=== PATIENT | male | born 1995 | race Caucasian/White ===

== ENCOUNTER 2019-05-07 17:30 | Emergency (ER) | payer MEDICAID ==
[~2019-05-07] VITALS: Ht 172.7 cm; Wt 59.0 kg
[2019-05-07 17:32] VITALS: BP_SYST 130
[2019-05-07 19:30] LABS: BASOPHILS # (AUTO) 0.1 K/uL (0.0-0.2); BASOPHILS % (AUTO) 0.8 % (0.0-2.0); EOSINOPHILS # (AUTO) 0.1 K/uL (0.0-0.4); HEMATOCRIT 41.7 % (36-54); HEMOGLOBIN 14.2 g/dL (14.0-18.0); LYMPHOCYTES # (AUTO) 4.1 K/uL (1.0-5.5); LYMPHOCYTES % (AUTO) 46.8 % (20.5-51.5); MEAN CORPUSCULAR HEMOGLOBIN 31 pg (27-31); MEAN CORPUSCULAR HGB CONC 34 % (32-36); MEAN CORPUSCULAR VOLUME 91 fL (79.0-98.0); MONOCYTES # (AUTO) 0.5 K/uL (0.0-1.0); MONOCYTES % (AUTO) 6.2 % (1.7-9.3); NEUTROPHILS % (AUTO) 45.2 % (40.0-70.0); PLATELET COUNT (AUTO) 273 K/uL (130-430); RED CELL DISTRIBUTION WIDTH 13.1 % (9.0-15.0); WHITE BLOOD COUNT (AUTO) 8.8 K/uL (4.8-10.8)
[2019-05-07 20:09] LABS: CALCIUM 8.7 mg/dL (8.4-11.0); POTASSIUM 3.9 mmol/L (3.5-5.1)
[2019-05-07 20:10] LABS: CREATININE 0.97 mg/dL (0.55-1.30)
[2019-05-07 20:11] LABS: ALBUMIN 4.1 g/dL (3.4-4.8)
[2019-05-07 20:17] LABS: FREE T4 (FREE THYROXINE) 1.4 ng/dl (0.8-1.5); THYROID STIMULATING HORMONE 0.93 uIu/mL (0.36-3.74)
[2019-05-07 20:33] LABS: TOTAL BILIRUBIN 0.3 mg/dL (0.0-1.0)
[2019-05-07 22:38] VITALS: BP_SYST 130
[2019-05-07 22:41] LABS: BARBITURATE, URINE NEGATIVE (NEG <=200); BENZODIAZEPINE, URINE NEGATIVE (NEG <=150); CANNABINOID, URINE NEGATIVE (NEG <=50); COCAINE, URINE NEGATIVE (NEG <=150); METHAMPHETAMINES SCREEN,URINE NEGATIVE (NEG <=500); OPIATE, URINE NEGATIVE (NEG <=100); PHENCYCLIDINE SCREEN,URINE NEGATIVE (NEG <=25); UR TRICYCLIC ANTIDEPRESSANTS NEGATIVE (NEG <=300); URINE AMPHETAMINE NEGATIVE (NEG <=500); URINE METHADONE NEGATIVE (NEG <=200); URINE OXYCODONE SCREEN NEGATIVE (NEG <=100); URINE PROPOXYPHENE SCREEN NEGATIVE (NEG <=300)
== END 2019-05-07 22:53 | disposition home or self-care (01) ==
LOC: SED 17:30
DX: R42 Dizziness and giddiness (principal); R53.1 Weakness; R03.0 Elevated blood-pressure reading, without diagnosis of hypertension
CPT/HCPCS: 36415; 80053; 80307; 84439; 84443-TC; 85025; 93005; 99284

== ENCOUNTER 2019-09-01 21:33 | Emergency (ER) | payer MEDICAID ==
[~2019-09-01] VITALS: Ht 172.7 cm; Wt 59.0 kg
[2019-09-01 21:35] VITALS: BP_SYST 123
--- NOTE | 2019-09-01 21:35 | NUR ---
Patient triaged and placed in waiting room. VSS and patient appears in no acute distress at this time. Accompanied by FAM MEMBER, awaiting available bed, and MD notified of need for MSE.
[2019-09-01 23:07] LABS: BILIRUBIN,URINE NEGATIVE (NEGATIVE); BLOOD, URINE NEGATIVE (NEGATIVE); CLARITY/URINE CLEAR (CLEAR); COLOR,URINE YELLOW (YELLOW); GLUCOSE,URINE NEGATIVE (NEGATIVE); KETONES,URINE NEGATIVE (NEGATIVE); LEUKOCYTE ESTERASE ,URINE NEGATIVE (NEGATIVE); NITRITE, URINE NEGATIVE (NEGATIVE); PH,URINE 6.5 (5.0-8.0); PROTEIN URINE NEGATIVE (NEGATIVE); UROBILINOGEN,URINE 0.2 (0.2-1.0)
--- NOTE | 2019-09-02 00:15 | NUR ---
Patient to ER bed 6 to gown for evaluation. Side rails up. Report given to [place] RUELAS.
[2019-09-02] MEDS ORDERED: KETOROLAC TROMETHAMINE 30 MG VIAL IM ONE (00:30)
--- NOTE | 2019-09-02 00:30 | NUR ---
ER Dr. Bauer at bedside examining patient.
--- NOTE | 2019-09-02 00:30 | NUR ---
Pt presents to ER with c/o left flank pain. Pt A&Ox4. Pt states last night he began having left flank pain when he was trying to sleep. Pt states pain is 4/10. Pt states no pain with urination, no increase in urination and no history of kidney stones. Pt denies nausea, fever, and vomiting. Pt denies hurting back with any strenuous activity or lifting any heavy items. Breath sound bilaterally clear with no use of accessory muscles. Will continue to monitor.
--- NOTE | 2019-09-02 00:42 | NUR ---
Lab at bedside.
[2019-09-02 00:49] LABS: BASOPHILS # (AUTO) 0.1 K/uL (0.0-0.2); BASOPHILS % (AUTO) 0.7 % (0.0-2.0); EOSINOPHILS % (AUTO) 0.1 % (0.0-4.0); HEMATOCRIT 43.9 % (36-54); HEMOGLOBIN 14.8 g/dL (14.0-18.0); LYMPHOCYTES # (AUTO) 2.6 K/uL (1.0-5.5); LYMPHOCYTES % (AUTO) 21.3 % (20.5-51.5); MEAN CORPUSCULAR HEMOGLOBIN 30 pg (27-31); MEAN CORPUSCULAR HGB CONC 34 % (32-36); MEAN CORPUSCULAR VOLUME 90 fL (79.0-98.0); MONOCYTES # (AUTO) 0.6 K/uL (0.0-1.0); MONOCYTES % (AUTO) 4.6 % (1.7-9.3); NEUTROPHILS # (AUTO) 8.9 K/uL (1.8-7.7); NEUTROPHILS % (AUTO) 73.3 % (40.0-70.0); PLATELET COUNT (AUTO) 337 K/uL (130-430); WHITE BLOOD COUNT (AUTO) 12.1 K/uL (4.8-10.8)
--- NOTE | 2019-09-02 00:50 | NUR ---
Pt denies toradol IM medication. Pt states pain is intermittent and he is currently not in pain. MD notified. Will continue to monitor.
[2019-09-02 01:03] LABS: CALCIUM 9.7 mg/dL (8.4-11.0); CREATININE 0.72 mg/dL (0.55-1.30); POTASSIUM 3.6 mmol/L (3.5-5.1)
[2019-09-02 01:09] LABS: ALBUMIN 4.9 g/dL (3.4-4.8); TOTAL BILIRUBIN 0.7 mg/dL (0.0-1.0)
[2019-09-02 01:43] VITALS: BP_SYST 126
--- NOTE | 2019-09-02 01:43 | NUR ---
Patient given written and verbal discharge instructions and verbalizes understanding. ER MD Bauer discussed with patient the results and treatment provided. Patient in stable condition. ID arm band removed. Rx of ibuprofen given. Patient educated on pain management and to follow up with PMD. Pain Scale 0/10. Opportunity for questions provided and answered. Medication side effect fact sheet provided.
== END 2019-09-02 01:43 | disposition home or self-care (01) ==
LOC: SED 21:33
DX: S39.011A Strain of muscle, fascia and tendon of abdomen, initial encounter (principal); X58.XXXA Exposure to other specified factors, initial encounter; Y93.89 Activity, other specified; Y92.89 Other specified places as the place of occurrence of the external cause; Y99.8 Other external cause status
CPT/HCPCS: 36415; 80053; 81003; 85025; 99284

== ENCOUNTER 2022-10-17 22:51 | Emergency (ER) | payer MEDICAID ==
[~2022-10-17] VITALS: Ht 172.7 cm; Wt 64.9 kg
[2022-10-17 23:10] VITALS: BP_SYST 116
[2022-10-17] MEDS ORDERED: CEPH-548 PO (23:54)
[2022-10-17 23:55] VITALS: BP_SYST 116
== END 2022-10-17 23:55 | disposition home or self-care (01) ==
LOC: SED 22:51
DX: L08.9 Local infection of the skin and subcutaneous tissue, unspecified (principal); L03.011 Cellulitis of right finger; Z79.899 Other long term (current) drug therapy
CPT/HCPCS: 99283